=== PATIENT | male | born 2000 | race Caucasian/White ===

== ENCOUNTER 2019-10-26 03:05 | Outpatient (CLI) | payer MEDICAID | END 2019-10-26 03:06 | disposition EMS.NT | LOC: EMS 03:05 | PROVIDERS: ATTEND Surgery | DX: Z03.89 Encounter for observation for other suspected diseases and conditions ruled out (principal) ==

== ENCOUNTER 2021-09-04 08:00 | Outpatient (CLI) | payer MEDICAID ==
--- NOTE | 2021-09-04 20:14 | XRAY Report ---
PROCEDURE: Hand 3 View RT INDICATIONS: RIGHT HAND PAIN TECHNIQUE: 3 views of the hand(s) acquired. COMPARISON: None FINDINGS: Bones: Radiolucency and cortical irregularity involving dorsal aspect of fifth proximal phalangeal ba se extending to fifth MCP joint space suggestive of a nondisplaced fracture in this area. No other fr acture or dislocation is seen. No suspicious bony lesions. Soft tissues: No suspicious soft tissue calcifications. IMPRESSION: Finding is suggestive of a nondisplaced or minimally displaced fifth proximal phalangeal base intra-a rticular fracture. Reviewed by: Carlito Wagoner MD on 09/04/2021 8:13 PM PST Approved by: Carlito Wagoner MD on 09/04/2021 8:13 PM PST Station ID: [id number]
== END 2021-09-04 23:59 | disposition home or self-care (01) ==
LOC: DI.N 08:00
PROVIDERS: ATTEND Physician Assistant
DX: M79.641 Pain in right hand (principal)